=== PATIENT | female | born 1960 | race Caucasian/White ===

== ENCOUNTER → 2017-08-31 | Outpatient (CLI) | payer BC ==
[~2017-08-31] MED LIST: AMLO-99 PO; CA C1TAB93 PO; CALC-640 PO; GEMF600T91 PO; HYOS0.1225 PO; HYOS0.128 PO; LOSA100T67 PO; MOMR ENA; MULT-865 PO; TRAN1TBM PO
--- NOTE | 2017-08-31 17:47 | EKG ---
FACILITY: [facility] PATIENT NAME: ROSANNA GONZALEZ : [id number] MR: [id number] V: [id number] EXAM DATE: ORDERING PHYSICIAN: JAIRO ARTIS TECHNOLOGIST: ELKIN MCLEOD Test Reason : CHEST PAIN Blood Pressure : / mmHG Vent. Rate : 071 BPM Atrial Rate : 071 BPM P-R Int : 182 ms QRS Dur : 114 ms QT Int : 422 ms P-R-T Axes : 073 015 022 degrees QTc Int : 458 ms Normal sinus rhythm Normal ECG No previous ECGs available Referred By: JAIRO ARTIS Confirmed By:
== END ==
LOC: RESP 17:27
PROVIDERS: ATTEND Nurse Practitioner Primary Care
DX: R07.9 Chest pain, unspecified (principal)

== ENCOUNTER → 2017-09-07 | Outpatient (CLI) | payer BC ==
--- NOTE | 2017-09-10 08:29 | RADIOLOGY IMAGING REPORT ---
FACILITY: [facility] PATIENT NAME: ROSANNA GONZALEZ : [id number] MR: [id number] V: [id number] EXAM DATE: ORDERING PHYSICIAN: JAIRO ARTIS TECHNOLOGIST: Jeanmarie Adams EXAMINATION:TWO-DIMENSIONAL ECHOCARDIOGRAPH REASON:CHEST PAIN. 2D Measurements (normal values in centimeters) LV endLV endRV endVent.LV PostAorticLeftPercent DiastolicSystolicDiastolicSeptumWallRootAtriumShortening (3.5-5.7)(0.9-2.6)(0.6-1.1)(0.6-1.1)(2.0-3.7)(1.9-4.0)(25-35%) [id number]% STROKE VOLUME: 100 mL ESTIMATED EJECTION FRACTION:68% PARASTERNAL LONG AXIS: Overall left ventricular systolic function appears to be normal. Chamber sizes also appear to be normal with the right ventricle being the upper range of normal in size. The aortic valve and mitral valve both appear to open normally. Color examination of the valves revealed a trace of mitral insufficiency present. PARASTERNAL SHORT AXIS: Again, overall left ventricular function does appear to be normal and chamber sizes also appear to be normal. The aortic valve is trileaflet in configuration and appears to open normally. Color examination of the valves reveals a trace of pulmonic insufficiency and a trace of tricuspid insufficiency present. Color examination of the aortic valve was unremarkable. APICAL FOUR AND TWO CHAMBER: Normal left ventricular ejection fraction, normal chamber sizes. No wall motion abnormalities are noted. The aortic valve area and mitral valve area both measure within normal ranges at 2.7 and 3.5 cm2 respectively. Left atrial and right atrial volumes measure within normal range at 21 and 15 mL/m2. Tricuspid regurgitation V-max is measured at 2.4 m/sec. No wall motion abnormalities are noted. SUBCOSTAL VIEW: No pericardial effusion was noted. No atrial septal or ventricular septal defects were appreciated. Doppler examination of the mitral valve in diastole does reveal the A wave greater than the E wave. IVC is normal in size. OVERALL IMPRESSION: 1. Normal left ventricular ejection fraction of 68% with a grade 1/4 decrease in diastolic function. 2. Normal chamber sizes with the right ventricle being the upper range of normal in size. 3. Trace of mitral, tricuspid and pulmonic insufficiency. Estimated right ventricular systolic pressure within normal range at 31 mmHg. 4. A trileaflet aortic valve with no abnormalities. Dictated by: Josue Crews M.D. on 09/09/2017 at 11:32 Transcribed by: YOSSI on 09/09/2017 at 14:42 Approved by: Josue Crews M.D. on 09/10/2017 at 8:27 [facility]
== END ==
LOC: US 01:50
PROVIDERS: ATTEND Nurse Practitioner Primary Care
DX: I34.0 Nonrheumatic mitral (valve) insufficiency (principal); I37.1 Nonrheumatic pulmonary valve insufficiency; I07.1 Rheumatic tricuspid insufficiency
CPT/HCPCS: 93306